=== PATIENT | female | born 2005 | race Caucasian/White ===

== ENCOUNTER 2024-01-03 20:55 | Emergency (ER) | payer OTHER, SELFPAY ==
[2024-01-03 20:59] VITALS: BP 149/83; PULSE 105; RESP 18; TEMP 37.3; O2SAT 99; BMI 20.1
--- NOTE | 2024-01-03 21:26 | PC.NURSE ---
pt brought to exam room with mom at bedside. sts that she was seen at an urgent care three days ago and diagnosed with mono. Pt sts that she feels as though she is having a hard time breathing. pt speaking in full compete sentances SpO2 100% [place] 100bpm. pt last took IBU at 1600. pt awaitng provider eval- call meehan within reach
[2024-01-03] MEDS: Acetaminophen 325 MG TABLET 975 MG PO (22:16)
[2024-01-03] MEDS: Ibuprofen 600 MG TABLET PO (22:16)
--- NOTE | 2024-01-03 22:30 | PC.NURSE ---
pt medicated per MAY for 10/10 throat pain.
--- NOTE | 2024-01-03 23:10 | ED.GENADULT ---
HPI - General Adult General Chief complaint: General Medical Stated complaint: mono, diff breathing Time Seen by Provider: 01/03/24 23:01 Source: patient, family, RN notes reviewed and old records reviewed Mode of arrival: ambulatory Limitations: no limitations History of Present Illness ED Provider: Barbara RAMIREZ narrative: 18-year-old female presents for evaluation of a sore throat. She was diagnosed 3 days ago and has had a sore throat for 5 days She reports painful swallowing in the 4 presents for re-evaluation. She states that she was also tested for strep throat which was negative at time 3 days ago Denies any coughing, chest pain, abdominal pain, nausea or vomiting No other complaints or concerns at this time Related Data Allergies Allergy/AdvReac Type Severity Reaction Status Date / Time No Known Allergies Allergy Verified 01/03/24 21:01 Review of Systems Constitutional: Constitutional: Reports body ache(s), Reports chills, Reports fever(s) and Denies headache(s) Eyes: Eyes: Denies blurry vision ENT: Denies vertigo, Denies dizziness, Denies headache(s) and Reports sore throat Cardiovascular: Cardiovascular: Denies chest pain Respiratory: Respiratory: Denies cough Gastrointestinal: Gastrointestinal: Denies abdominal pain, Denies nausea and Denies vomiting Musculoskeletal: Musculoskeletal: Denies back pain Integumentary/Breasts: Skin/Breast: Denies rash Neurologic: Denies vertigo, Denies dizziness and Denies headache(s) PMFSH Social History Social History Advance Directives: No Advance Directives Information Provided: No Do you have a plan to hurt others: No Plan Patient : No Physical Exam ED Vital Signs: Vital Signs - 24 hr 01/03/24 20:59 01/03/24 23:18 01/03/24 23:40 Temperature 99.2 F 98.3 F 98.3 F Pulse Rate 105 H 92 92 Respiratory Rate 18 16 16 Blood Pressure 149/83 H 129/78 129/78 Pulse Oximetry 99 98 98 Oxygen Delivery Method Room Air Room Air Room Air BMI result Body Mass Index 20.1 Const General: healthy appearing, comfortable, no acute distress, alert and awake Nutritional Appearance: well nourished Orientation/consciousness: patient oriented x3 HENMT Other: Bilateral tonsillar hypertrophy, left greater than right with associated exudates, no evidence of peritonsillar abscess. Head: Yes normocephalic and Yes atraumatic Throat: No posterior oropharynx normal, No tonsils normal, Yes uvula midline, No peritonsillar mass and Yes posterior oropharynx abnormal Eyes Eyelids: Yes eyelids normal Conjunctivae: conjunctivae normal Sclerae: sclerae normal Corneas: corneas normal Pupils: Equal, round and reactive pupils present EOM: EOMs intact bilaterally Neck Neck: Yes full ROM Resp Effort & Inspection: normal respiratory effort, able to speak in complete sentences and not labored GI Inspection: No distended Palpation (GI): Soft to palpation, not firm, nontender, no guarding and not rigid Skin General skin exam: elasticity normal Neuro General: patient oriented x3 Cranial nerves: Yes Equal, round and reactive pupils present and Yes Bilaterally intact EOM present Cognition (Neuro): normal cognition Extrem Other: Moving all extremities well without any obvious deformities Medications Administered Discontinued Medications Generic Name Dose Route Start Last Admin Trade Name Freq PRN Reason Stop Dose Admin Acetaminophen 975 mg 01/03/24 22:12 01/03/24 22:16 Acetaminophen 325 Mg Tablet PO 01/03/24 22:13 975 mg ONCE ONE Administration Dexamethasone 10 mg 01/03/24 23:09 01/03/24 23:31 Dexamethasone 2 Mg Tablet PO 01/03/24 23:10 10 mg ONCE ONE Administration Ibuprofen 600 mg 01/03/24 22:12 01/03/24 22:16 Ibuprofen 600 Mg Tablet PO 01/03/24 22:13 600 mg ONCE ONE Administration Medical Decision Making Medical Decision Making [facility] Narrative: 18-year-old female presents for evaluation of sore throat, she has known mononucleosis. Her airway remains patent but she is having increasing symptoms, we will give 1 dose of dexamethasone. She is currently afebrile and already able to tolerate p.o. Differential Diagnosis Differential Diagnoses: The differential diagnosis associated with the presentation includes Mononucleosis Pharyngitis Peritonsillar abscess Exudative pharyngitis Discharge Plan Discharge Clinical Impression: CMV mononucleosis Patient Disposition: Home, Self-Care Instructions: Mononucleosis (ED) Additional Instructions: Continue ibuprofen and Tylenol for fever and sore throat. You were given a dose of steroids in the emergency department. This should stay in her system for the next few days and help reduce swelling and your discomfort Follow-up with your primary doctor, return for new or worsening symptoms Stand Alone Forms: Work/School Release Interventions: ED Discharge Assessment Last Done: 01/03/24 23:40 Discharge Date/Time: 01/03/24 23:41 Print Language: Slovak
[2024-01-03 23:18] VITALS: BP 129/78; PULSE 92; RESP 16; TEMP 36.8; O2SAT 98
[2024-01-03] MEDS: dexAMETHasone 2 MG TABLET 10 MG PO (23:31)
[2024-01-03 23:40] VITALS: BP 129/78; PULSE 92; RESP 16; TEMP 36.8; O2SAT 98
== END 2024-01-03 23:41 | disposition home or self-care (01) ==
PROVIDERS: Emergency Provider Emergency Medicine
DX: B27.10 Cytomegaloviral mononucleosis without complications (principal); R06.02 Shortness of breath; J02.9 Acute pharyngitis, unspecified
CPT/HCPCS: 99283; 99284; J8540

== ENCOUNTER 2024-09-23 21:24 | Emergency (ER) | payer MEDICAID, SELFPAY ==
[2024-09-23 21:27] VITALS: BP 139/73; PULSE 89; RESP 20; TEMP 36.8; O2SAT 99; BMI 20.1
[2024-09-23 22:52] VITALS: BP 134/84; PULSE 76; RESP 20; TEMP 36.7; O2SAT 98
[2024-09-24] MEDS: Lidocaine HCl 1%/Epi 1:100,000 10 ML VIAL INFILTRATI (00:38)
--- NOTE | 2024-09-24 01:02 | ED.GENADULT ---
HPI - General Adult General Chief complaint: Skin/Abscess/Foreign Body Stated complaint: Cyst around vagina area Time Seen by Provider: 09/23/24 22:28 Source: patient Limitations: no limitations History of Present Illness ED Provider: Aby Cheatham PA-C HPI narrative: 19-year-old female presents with tender swelling along pubic hair region x7 days. Patient developed a tender swelling within the groin, she now has worsening swelling, pain and erythema. Denies fever. Related Data Previous Rx's ?Medication ?Instructions ?Recorded doxycycline hyclate 100 mg capsule 100 mg PO BID #13 caps 09/24/24 Allergies Allergy/AdvReac Type Severity Reaction Status Date / Time No Known Allergies Allergy Verified 09/23/24 21:34 Review of Systems Review of Systems: Yes all other systems are reviewed and are negative Constitutional: Constitutional: Denies fatigue and Denies fever(s) Cardiovascular: Cardiovascular: Denies chest pain Respiratory: Respiratory: Denies cough Gastrointestinal: Gastrointestinal: Denies abdominal pain, Denies nausea and Denies vomiting Genitourinary: Genitourinary: Denies dysuria, Denies pelvic pain, Denies vaginal discharge and Denies vaginal pruritus Endocrine: Endocrine: Denies fatigue ON LICENSE OF [facility] Past Medical History Attestation statement: The following information was validated with the patient. Social History Social History Smoked in Last 30 Days: No Use of substances other than those prescribed or required for medical reasons: No Advance Directives: No Advance Directives Information Provided: No Physical Exam ED Vital Signs: Vital Signs - 24 hr 09/23/24 21:27 09/23/24 22:52 Temperature 98.3 F 98.1 F Pulse Rate 89 76 Respiratory Rate 20 20 Blood Pressure 139/73 134/84 Pulse Oximetry 99 98 Oxygen Delivery Method Room Air Room Air BMI result Body Mass Index 20.1 Const Other: Alert well-appearing Orientation/consciousness: patient oriented x3 Resp Effort & Inspection: normal respiratory effort Cardio Other: Normal peripheral perfusion Other: Tender, erythematous, indurated swelling noted right groin, lateral to the labia, central fluctuance noted Skin Other: Warm dry no rash Neuro General: patient oriented x3, gait normal, no focal motor deficits and CN's II-XI intact bilaterally Psych Other: Cooperative Medications Administered Discontinued Medications Generic Name Dose Route Start Last Admin Trade Name Freq PRN Reason Stop Dose Admin Doxycycline Monohydrate 100 mg 09/24/24 00:08 09/24/24 00:38 Doxycycline Monohydrate 100 Mg Capsule PO 09/24/24 00:09 100 mg ONCE ONE Administration Lidocaine/Epinephrine 10 ml 09/24/24 00:08 09/24/24 00:38 Lidocaine Hcl 1%/Epi 1:100,000 10 Ml Vial INFILTRATI 09/24/24 00:09 10 ml ONCE ONE Administration Procedures Abscess I/D Site: other (Groin) Side (if applicable): right Sedation/analgesia: none Local Anesthetic: lidocaine 1% and with epi Amount of anesthesia used (mL): 3 Technique: incised with blade and ultrasound guided Amount of fluid expressed (mL): 10 Sent for culture/gram staining?: No Irrigation: Yes Packing used?: none Medical Decision Making Medical Decision Making MDM Narrative: 19-year-old female presents with tender swelling along pubic hair region x7 days. Patient developed a tender swelling within the groin, she now has worsening swelling, pain and erythema. Denies fever. No chronic issues History: Per patient I have considered the following differential diagnoses: Cellulitis, purulent cellulitis, abscess, Bartholin gland cyst Plan: Patient has a simple abscess, we will I and D. We will place on doxy. Discharge Plan Discharge Clinical Impression: Abscess of skin or subcutaneous tissue Patient Disposition: Home, Self-Care Instructions: Abscess (ED), Incision and Drainage (ED) Additional Instructions: You had an abscess that was drained. See home care instructions. You can apply warm compresses to the site once to 2 times a day. Take the doxycycline as directed. Follow up with your primary care provider as needed. Prescriptions: New doxycycline hyclate 100 mg capsule 100 mg PO BID Qty: 13 0RF Stand Alone Forms: Work/School Release Print Language: Japanese
[2024-09-24 01:19] VITALS: BP 134/84; PULSE 76; RESP 20; TEMP 36.7; O2SAT 98
== END 2024-09-24 01:20 | disposition home or self-care (01) ==
PROVIDERS: Emergency Provider Emergency Medicine
DX: L02.214 Cutaneous abscess of groin (principal); R10.2 Pelvic and perineal pain
CPT/HCPCS: 10060; 99284; J2004